=== PATIENT | female | born 1960 | race African-American/Black ===

== ENCOUNTER 2016-11-22 20:42 | Emergency (ER) | payer OTHER ==
[~2016-11-22] VITALS: Ht 157.5 cm; Wt 121.6 kg
[2016-11-22] MEDS ORDERED: LISI10TA2 PO (21:05)
[2016-11-22] MEDS ORDERED: METO-239 PO (21:05)
[2016-11-22] MEDS ORDERED: METF500T4 PO (21:05)
[2016-11-22] MEDS ORDERED: INSU100V9 SQ (21:05)
[2016-11-22] MEDS ORDERED: INSU100I13 SQ (21:05)
[2016-11-22] MEDS ORDERED: AMLO10TA2 PO (21:05)
[2016-11-22] MEDS ORDERED: LORA10TA3 PO (21:06)
[2016-11-22] MEDS ORDERED: ATOR10TA60 PO (21:06)
[2016-11-22] MEDS ORDERED: SERT25TA PO (21:11)
[2016-11-22] MEDS ORDERED: BUDE10.2 IH (21:11)
--- NOTE | 2016-11-22 21:25 | PHYS DOC ---
Past Medical History Past Medical History: Asthma, Depression, Diabetes-Type II, High Cholesterol, Hypertension, Other Additional Past Medical Histor: SVT with ablation; Past Surgical History: Other Additional Past Surgical Histo: cath with ablation; hernia Alcohol Use: Occasionally Drug Use: None Adult General Chief Complaint Chief Complaint: POST-OP PROBLEM HPI HPI Patient is a 56 year old female who presents with complaining of pain and numbness in left thigh. Patient states her symptoms started after having cardiac ablation from heart catheter in May 2016. The patient states that she has been having tightness and pins and needles sensation in her leg ever since. Patient has not had it checked out since her surgery and has not followed with her doctor for evaluation. Patient denies any associated chest pain or shortness of breath with her symptoms. Patient states that the pain extends down the anterior thigh and terminates at the left knee. The patient is concerned that she may have a blood clot in the leg which is why she came to the emergency department. The patient rates her pain as 8 out of 10. Patient has not taken anything for her symptoms today. Review of Systems Review of Systems Constitutional: Denies fever or chills [] Eyes: Denies change in visual acuity, redness, or eye pain [] HENT: Denies nasal congestion or sore throat [] Respiratory: Denies cough or shortness of breath [] Cardiovascular: No additional information not addressed in HPI [] GI: Denies abdominal pain, nausea, vomiting, bloody stools or diarrhea [] : Denies dysuria or hematuria [] Musculoskeletal: Left thigh pain[] Integument: Denies rash or skin lesions [] Neurologic: Denies headache, focal weakness or sensory changes [] Allergies Allergies Allergies Coded Allergies Type Severity Reaction Last Updated Verified No Known Drug Allergies 11/22/16 No Physical Exam Physical Exam Constitutional: Alert, obese, afebrile, no acute distress. [] HENT: Normocephalic, atraumatic, bilateral external ears normal, oropharynx moist, no oral exudates, nose normal. [] Eyes: PERRLA, EOMI, conjunctiva normal, no discharge. [] Neck: Normal range of motion, no tenderness, supple, no stridor. [] Cardiovascular:Heart rate regular rhythm, no murmur [] Lungs & Thorax: Bilateral breath sounds clear to auscultation [] Abdomen: Bowel sounds normal, soft, no tenderness, no masses, no pulsatile masses. [] Skin: Warm, dry, no erythema, no rash. [] Back: No tenderness, no CVA tenderness. [] Extremities: Mild left anterior proximal thigh tenderness to palpation, no cyanosis, no clubbing, ROM intact, no edema. [] Neurologic: Alert and oriented X 3, normal motor function, normal sensory function, no focal deficits noted. [] Current Patient Data Vital Signs Vital Signs Date Time Temp Pulse Resp B/P (MAP) Pulse Ox O2 Delivery O2 Flow Rate FiO2 11/22/16 22:30 60 21 135/68 (90) 95 Room Air 11/22/16 20:50 97.9 97.9 Lab Values Laboratory Tests Test 11/22/16 21:20 Glucose (Fingerstick) 249 mg/dL (70-99) H EKG EKG Not performed[] Radiology/Procedures Radiology/Procedures [facility] [address] [place], [place] [id number] IMAGING REPORT Signed PATIENT: ALYSHA CHILDS ACCOUNT: [id number] : 1960 LOCATION: ER AGE: 56 SEX: F EXAM STATUS: REG ER ORD. PHYSICIAN: LILIANA MTZ MD REASON: numbness, pain in L thigh since may 2016 cath, r/o pseudoaneurysm PROCEDURE: ARTERIAL STUDY LOWER EXT LEFT Examination: Ultrasound left lower extremity arterial duplex HISTORY: History of left leg numbness after catheterization COMPARISON: None available Technique: Grayscale, color Doppler 2-D, spectral waveform analysis of the left lower extremity arterial duplex were performed FINDINGS: There is no evidence of elevated focal elevated velocity identified in the left lower extremity arterial system. No evidence of obvious pseudoaneurysm identified. The velocity in the left CAVITY PUMP OPERATOR 106 cm/s, DFA 87 cm/s, proximal SFA 98 cm/s, mid SFA 92 cm/s, distal SFA 76 cm/s, popliteal artery 54 cm/s, proximal TRANSITION SOCIAL WORKER 67 cm/s, peroneal artery 62 cm/s. Anterior tibialis artery 52 cm/s and dorsalis pedis artery 57 cm/s. IMPRESSION: 1. No evidence of hemodynamically significant stenosis. No evidence of obvious pseudoaneurysm visualized. Electronically signed by: Jameson Godfrey MD (11/22/2016 11:47 PM) [facility] DICTATED and SIGNED BY: JAMESON GODFREY MD DATE: 11/22/16 [id number] CC: LILIANA MTZ MD; UNKNOWN PCP NAME ~ [] Course & Med Decision Making Course & Med Decision Making Pertinent Labs and Imaging studies reviewed. (See chart for details) Patient's ultrasound negative for pseudoaneurysm. The patient's symptoms appear consistent with a possible injury to the left femoral nerve due to distribution in the anterior and lateral thigh. This may have happened during the patient's procedure in May. I explained to the patient that nerves can take several months to heal. Advise follow-up with patient's primary doctor in 1 week for reevaluation. Advised Tylenol as needed for discomfort at this time. Recommended return emergency department for any worsening symptoms. Patient was understanding and in agreement with treatment plan. Dragon Disclaimer Dragon Disclaimer This electronic medical record was generated, in whole or in part, using a voice recognition dictation system. Departure Departure Impression: Primary Impression: Left thigh pain Disposition: 01 HOME, SELF-CARE Condition: STABLE Patient Instructions: Pain of Unknown Etiology (Pain without a known Cause) Additional Instructions: It is believed that your pain symptoms may be be the result of a possible nerve injury that could have happened during your cardiac procedure. It can take up to 6-8 months for nerves to heal. It is recommended that she follow-up to primary doctor in 1 week for reevaluation. You may take Tylenol over-the- counter as directed on packaging as needed for discomfort. Return to emergency department for any worsening symptoms. LILIANA MTZ MD Nov 22, 2016 21:25
--- NOTE | 2016-11-22 23:50 | RAD ---
Examination: Ultrasound left lower extremity arterial duplex HISTORY: History of left leg numbness after catheterization COMPARISON: None available Technique: Grayscale, color Doppler 2-D, spectral waveform analysis of the left lower extremity arterial duplex were performed FINDINGS: There is no evidence of elevated focal elevated velocity identified in the left lower extremity arterial system. No evidence of obvious pseudoaneurysm identified. The velocity in the left SUPERVISOR RESIDENTIAL 106 cm/s, DFA 87 cm/s, proximal SFA 98 cm/s, mid SFA 92 cm/s, distal SFA 76 cm/s, popliteal artery 54 cm/s, proximal WATER SERVICE DISPATCHER 67 cm/s, peroneal artery 62 cm/s. Anterior tibialis artery 52 cm/s and dorsalis pedis artery 57 cm/s. IMPRESSION: 1. No evidence of hemodynamically significant stenosis. No evidence of obvious pseudoaneurysm visualized. Electronically signed by: Jameson Godfrey MD (11/22/2016 11:47 PM) [facility]
[2016-11-23 00:28] VITALS: BP 137/64
== END 2016-11-23 00:34 | disposition home or self-care (01) ==
LOC: ER 20:42
DX: M79.652 Pain in left thigh (principal); R20.0 Anesthesia of skin; I10 Essential (primary) hypertension; E11.9 Type 2 diabetes mellitus without complications; J45.909 Unspecified asthma, uncomplicated; E78.00 Pure hypercholesterolemia, unspecified
CPT/HCPCS: 82962; 93923; 99285-25